=== PATIENT | male | born 1970 | race Caucasian/White ===

== ENCOUNTER 2018-06-28 21:18 | Emergency (ER) | payer MEDICAID ==
[~2018-06-28] VITALS: Ht 170.2 cm; Wt 84.4 kg
[2018-06-28 21:30] VITALS: BP 143/97
--- NOTE | 2018-06-28 21:31 | NUR ---
PT AMBULATORY TO ER LOBBY W/ STEADY GAIT IN STABLE CONDITION.
--- NOTE | 2018-06-28 21:39 | NUR ---
PT TAKEN TO XRAY FROM [facility]
--- NOTE | 2018-06-28 21:51 | NUR ---
PT RETURN FROM [facility] TO [facility]
--- NOTE | 2018-06-28 23:00 | NUR ---
PT ambulated to bed 12.
[2018-06-28] MEDS ORDERED: IBUPROFEN 600 MG TAB PO ONE (23:10)
--- NOTE | 2018-06-28 23:22 | NUR ---
PT PRESENTS TO ED FOR EVALUATION OF RT HAND PAIN. PT TRIPPED AND FELL, USED RT TO MALATHI HIS HEAD. AAO X4, GCS 15. RESPIATIONS EVEN AND UNLABORED. SKIN WARM/PINK/DRY, +PMSC. RT HAND MILD SWOLLEN, RADIAL PULSE PRESENTS AND STRONG, ABLE TO MOVE ALL FINGERS. STATED PAIN 12/06. VSS, DR. LULY KIDD OF PT STATUS. WILL CONTINUE TO MONITOR
--- NOTE | 2018-06-29 00:16 | NUR ---
DR. MAURICIO EVALUATING PT AT BEDSIDE
--- NOTE | 2018-06-29 00:46 | NUR ---
Patient discharged with v/s stable. Written and verbal after care instructions given and explained. Patient alert, oriented and verbalized understanding of instructions. Ambulatory with steady gait. All questions addressed prior to discharge. ID band removed. Patient advised to follow up with PMD. Rx of NAPROSYN 500 MG given. Patient educated on indication of medication including possible reaction and side effects. Opportunity to ask questions provided and answered.
[2018-06-29 00:47] VITALS: BP 138/94
== END 2018-06-29 00:46 | disposition home or self-care (01) ==
LOC: MED 21:18
DX: S63.501A Unspecified sprain of right wrist, initial encounter (principal); E11.9 Type 2 diabetes mellitus without complications; I10 Essential (primary) hypertension; W19.XXXA Unspecified fall, initial encounter; Y93.89 Activity, other specified; Y92.89 Other specified places as the place of occurrence of the external cause; Y99.8 Other external cause status
CPT/HCPCS: 73110; 73130; 99283